=== PATIENT | male | born 1955 | race Caucasian/White ===

== ENCOUNTER 2023-09-15 10:55 | Outpatient (RCR) | payer BC, SELFPAY | END 2023-09-15 23:59 | disposition home or self-care (01) | LOC: ROT 10:55 | PROVIDERS: ATTENDING PHYSICIAN Family Medicine | DX: M19.042 Primary osteoarthritis, left hand (principal); Z73.6 Limitation of activities due to disability | CPT/HCPCS: 97018; 97110; 97166; 97530; 97535 ==

== ENCOUNTER → 2023-12-11 08:19 | Outpatient (REF) | payer BC, SELFPAY ==
[2023-12-11 09:55] LABS: Urine Albumin Negative (Neg - Trace); Urine Bilirubin Negative (Negative); Urine Character Clear (Clear); Urine Color Yellow; Urine Glucose Negative (Negative); Urine Ketone Negative (Negative); Urine Leukocyte Negative (Negative); Urine Nitrite Negative (Negative); Urine Occult Blood Negative (Negative); Urine Specific Gravity 1.015 (<1.030); Urine Urobilinogen Negative (Neg - 1+)
[2023-12-11 09:57] LABS: % Basophils 0.5 % (0-2); % Eosinophils 0.8 % (0-6); % Immature Granulocytes 0.3 % (0-0.5); % Lymphocytes 38.8 % (20.5-51.1); % Monocytes 9.4 % (1.7-9.3); % Neutrophils 50.2 % (42.2-75.2); Absolute Lymphocytes 1.4 10^3/uL (1.2-3.4); Absolute Monocytes 0.4 10^3/uL (0.1-0.6); Absolute Neutrophils 1.9 10^3/uL (1.4-6.5); Hematocrit 42.3 % (39.0-52.0); Hemoglobin 14.5 g/dL (13.0-18.0); Mean Corp Hgb Conc. 34.3 g/dL (33.0-37.0); Mean Corpuscular Hgb 30.1 pg (27.0-31.0); Mean Corpuscular Volume 87.8 fL (80.0-94.0); Mean Platelet Volume 9.3 fL (7.4-10.4); Nucleated Red Blood Cells % 0 % (-); Platelet Count 231 10^3/uL (130-400); Red Blood Cell Count 4.82 10^6/uL (4.70-6.10); Red Cell Dist. Width 12.6 % (11.5-14.5); White Blood Cell Count 3.7 10^3/uL (4.8-10.8)
[2023-12-11 10:37] LABS: ALT (SGPT) 37 U/L (0-50); AST (SGOT) 43 U/L (17-59); Albumin 4.3 g/dl (3.5-5.0); Alkaline Phosphatase 100 U/L (38-126); Blood Urea Nitrogen 24 mg/dl (9-20); Calcium 9.4 mg/dl (8.4-10.2); Carbon Dioxide 26 mmol/L (22-30); Chloride 105 mmol/L (98-107); Glucose 91 mg/dl (70-99); HDL Cholesterol 57 mg/dl; LDL Cholesterol, Calculated 140 mg/dl; Potassium 4.7 mmol/L (3.5-5.1); Sodium 140 mmol/L (135-145); Total Bilirubin 0.7 mg/dl (0.2-1.3); Total Cholesterol 209 mg/dl (50-199); Total Protein 7.2 g/dl (6.3-8.2); Triglyceride 61 mg/dl (10-149); Very Low Density Lipoprotein 12 mg/dl (0-30); eGFR > 60.00
[2023-12-11 11:08] LABS: PSA, Total - Screen 2.68 ng/ml (0.0-4.0)
[2023-12-13 15:31] LABS: Homocysteine 12 umol/L (0-15)
== END ==
LOC: HWLAB 08:19
PROVIDERS: ATTENDING PHYSICIAN Family Medicine
DX: E78.5 Hyperlipidemia, unspecified (principal); Z00.00 Encounter for general adult medical examination without abnormal findings
CPT/HCPCS: 36415; 80053; 80061; 81003; 83090; 85025; G0103

== ENCOUNTER → 2024-08-02 08:37 | Outpatient (REF) | payer BC, SELFPAY ==
[2024-08-02 11:16] LABS: % Basophils 0.5 % (0-2); % Eosinophils 0.7 % (0-6); % Lymphocytes 32.9 % (20.5-51.1); % Monocytes 9.1 % (1.7-9.3); % Neutrophils 56.8 % (42.2-75.2); Absolute Lymphocytes 1.3 10^3/uL (1.2-3.4); Absolute Monocytes 0.4 10^3/uL (0.1-0.6); Absolute Neutrophils 2.3 10^3/uL (1.4-6.5); Hematocrit 44.3 % (39.0-52.0); Hemoglobin 14.7 g/dL (13.0-18.0); Mean Corp Hgb Conc. 33.2 g/dL (33.0-37.0); Mean Corpuscular Hgb 30.1 pg (27.0-31.0); Mean Corpuscular Volume 90.6 fL (80.0-94.0); Mean Platelet Volume 9.7 fL (7.4-10.4); Nucleated Red Blood Cells % 0 % (-); Platelet Count 220 10^3/uL (130-400); Red Blood Cell Count 4.89 10^6/uL (4.70-6.10); Red Cell Dist. Width 12.3 % (11.5-14.5); White Blood Cell Count 4.1 10^3/uL (4.8-10.8)
[2024-08-02 11:29] LABS: ALT (SGPT) 38 U/L (0-50); AST (SGOT) 37 U/L (17-59); Albumin 4.6 g/dl (3.5-5.0); Alkaline Phosphatase 87 U/L (38-126); Blood Urea Nitrogen 20 mg/dl (9-20); Calcium 9.4 mg/dl (8.4-10.2); Carbon Dioxide 27 mmol/L (22-30); Chloride 102 mmol/L (98-107); Glucose 94 mg/dl (70-99); HDL Cholesterol 50 mg/dl; Potassium 4.4 mmol/L (3.5-5.1); Sodium 137 mmol/L (135-145); Total Bilirubin 1.1 mg/dl (0.2-1.3); Total Protein 7.1 g/dl (6.3-8.2); Triglyceride 139 mg/dl (10-149); Very Low Density Lipoprotein 27 mg/dl (0-30); eGFR > 60.00
[2024-08-02 11:39] LABS: Glycohemoglobin (HgbA1c) 5.3 % (4.0-5.6)
[2024-08-02 11:53] LABS: PSA, Total - Screen 2.52 ng/ml (0.0-4.0); TSH 3.23 uIU/ml (0.47-4.68)
[2024-08-02 13:25] LABS: LDL Cholesterol, Calculated 145 mg/dl; Total Cholesterol 222 mg/dl (50-199)
[2024-08-04 00:31] LABS: Homocysteine 10 umol/L (0-15)
== END ==
LOC: HWRAD 08:37
PROVIDERS: ATTENDING PHYSICIAN Surgery; FAMILY PHYSICIAN Family Medicine; OTHER PHYSICIAN Internal Medicine Cardiovascular Disease; REFERRING PHYSICIAN Family Medicine Adult Medicine
DX: K43.9 Ventral hernia without obstruction or gangrene (principal); Z00.00 Encounter for general adult medical examination without abnormal findings
CPT/HCPCS: 36415; 74176; 80053; 80061; 83036; 83090; 84443; 85025; G0103

== ENCOUNTER → 2024-08-26 08:58 | Outpatient (REF) | payer BC, SELFPAY | LOC: RCS 08:58 | PROVIDERS: ATTENDING PHYSICIAN Internal Medicine Cardiovascular Disease; FAMILY PHYSICIAN Family Medicine | DX: I34.0 Nonrheumatic mitral (valve) insufficiency (principal) | CPT/HCPCS: 93017; 93350; Q9950 ==

== ENCOUNTER → 2024-08-31 12:24 | Outpatient (REF) | payer BC, SELFPAY | LOC: RCS 12:24 | PROVIDERS: ATTENDING PHYSICIAN Internal Medicine Cardiovascular Disease; FAMILY PHYSICIAN Family Medicine | DX: I34.0 Nonrheumatic mitral (valve) insufficiency (principal) | CPT/HCPCS: 93306 ==

== ENCOUNTER 2024-09-22 14:03 | Outpatient (RCR) | payer BC, SELFPAY | END 2024-09-22 23:59 | disposition home or self-care (01) | LOC: RPT 14:03 | PROVIDERS: ATTENDING PHYSICIAN Surgery; FAMILY PHYSICIAN Family Medicine | DX: M47.816 Spondylosis without myelopathy or radiculopathy, lumbar region (principal); Z73.6 Limitation of activities due to disability; M25.562 Pain in left knee; M62.81 Muscle weakness (generalized) | CPT/HCPCS: 97010; 97110; 97162 ==

== ENCOUNTER 2024-10-12 11:02 | Outpatient (RCR) | payer BC, SELFPAY | END 2024-10-12 13:19 | disposition home or self-care (01) | LOC: RPT 11:02 | PROVIDERS: ATTENDING PHYSICIAN Surgery; FAMILY PHYSICIAN Family Medicine | DX: M47.816 Spondylosis without myelopathy or radiculopathy, lumbar region (principal); Z73.6 Limitation of activities due to disability; M25.562 Pain in left knee; M62.81 Muscle weakness (generalized) | CPT/HCPCS: 97010; 97110 ==

== ENCOUNTER → 2024-12-12 07:29 | Outpatient (REF) | payer BC, SELFPAY ==
[2024-12-12 08:03] LABS: % Basophils 0.5 % (0-2); % Eosinophils 0.8 % (0-6); % Immature Granulocytes 0.3 % (0-0.5); % Lymphocytes 43.2 % (20.5-51.1); % Monocytes 8.7 % (1.7-9.3); % Neutrophils 46.5 % (42.2-75.2); Absolute Lymphocytes 1.6 10^3/uL (1.2-3.4); Absolute Monocytes 0.3 10^3/uL (0.1-0.6); Absolute Neutrophils 1.7 10^3/uL (1.4-6.5); Hematocrit 43.2 % (39.0-52.0); Hemoglobin 14.5 g/dL (13.0-18.0); Mean Corp Hgb Conc. 33.6 g/dL (33.0-37.0); Mean Corpuscular Hgb 30.4 pg (27.0-31.0); Mean Corpuscular Volume 90.6 fL (80.0-94.0); Mean Platelet Volume 9.3 fL (7.4-10.4); Nucleated Red Blood Cells % 0 % (-); Platelet Count 213 10^3/uL (130-400); Red Blood Cell Count 4.77 10^6/uL (4.70-6.10); Red Cell Dist. Width 12.6 % (11.5-14.5); White Blood Cell Count 3.7 10^3/uL (4.8-10.8)
[2024-12-12 08:38] LABS: ALT (SGPT) 43 U/L (0-50); AST (SGOT) 40 U/L (17-59); Albumin 4.4 g/dl (3.5-5.0); Alkaline Phosphatase 74 U/L (38-126); Blood Urea Nitrogen 24 mg/dl (9-20); Calcium 9.6 mg/dl (8.4-10.2); Carbon Dioxide 26 mmol/L (22-30); Chloride 107 mmol/L (98-107); Glucose 96 mg/dl (70-99); HDL Cholesterol 56 mg/dl; LDL Cholesterol, Calculated 174 mg/dl; Potassium 4.6 mmol/L (3.5-5.1); Sodium 140 mmol/L (135-145); Total Bilirubin 0.7 mg/dl (0.2-1.3); Total Cholesterol 253 mg/dl (50-199); Total Protein 7.3 g/dl (6.3-8.2); Triglyceride 119 mg/dl (10-149); Very Low Density Lipoprotein 23 mg/dl (0-30); eGFR > 60.00
[2024-12-14 04:44] LABS: Homocysteine 11 umol/L (0-15)
== END ==
LOC: REG 07:29
PROVIDERS: ATTENDING PHYSICIAN Family Medicine
DX: E78.2 Mixed hyperlipidemia (principal); R53.83 Other fatigue; Z13.1 Encounter for screening for diabetes mellitus; E53.8 Deficiency of other specified B group vitamins
CPT/HCPCS: 36415; 80053; 80061; 83090; 85025

== ENCOUNTER → 2025-01-04 07:11 | Outpatient (REF) | payer BC, SELFPAY | LOC: HWRAD 07:11 | PROVIDERS: ATTENDING PHYSICIAN Family Medicine | DX: R10.11 Right upper quadrant pain (principal) | CPT/HCPCS: 76700 ==

== ENCOUNTER → 2025-03-31 09:24 | Outpatient (REF) | payer BC, SELFPAY | LOC: RAD 09:24 | PROVIDERS: ATTENDING PHYSICIAN Nurse Practitioner Adult Health; FAMILY PHYSICIAN Family Medicine | DX: M54.50 Low back pain, unspecified (principal) | CPT/HCPCS: 72110 ==

== ENCOUNTER 2025-04-13 16:54 | Outpatient (RCR) | payer BC, SELFPAY | END 2025-04-13 23:59 | disposition home or self-care (01) | LOC: RPT 16:54 | PROVIDERS: ATTENDING PHYSICIAN Family Medicine | DX: R10.22 Pelvic and perineal pain left side (principal); R10.2 Pelvic and perineal pain (principal); M62.89 Other specified disorders of muscle; N39.41 Urge incontinence; R35.1 Nocturia; Z73.6 Limitation of activities due to disability; M54.50 Low back pain, unspecified; M62.08 Separation of muscle (nontraumatic), other site; K59.00 Constipation, unspecified; R35.0 Frequency of micturition | CPT/HCPCS: 97112; 97140; 97163; 97530 ==

== ENCOUNTER 2025-05-18 13:50 | Outpatient (RCR) | payer BC, SELFPAY | END 2025-05-18 23:59 | disposition home or self-care (01) | LOC: RPT 13:50 | PROVIDERS: ATTENDING PHYSICIAN Family Medicine | DX: R10.22 Pelvic and perineal pain left side (principal); M62.89 Other specified disorders of muscle; N39.41 Urge incontinence; R35.1 Nocturia; Z73.6 Limitation of activities due to disability; M54.50 Low back pain, unspecified; M62.08 Separation of muscle (nontraumatic), other site; R35.0 Frequency of micturition; K59.00 Constipation, unspecified; R10.2 Pelvic and perineal pain | CPT/HCPCS: 97110; 97112; 97140; 97530 ==

== ENCOUNTER → 2025-05-29 14:06 | Outpatient (REF) | payer BC, SELFPAY ==
[2025-05-29 14:34] LABS: Hematocrit 45.3 % (39.0-52.0); Hemoglobin 14.7 g/dL (13.0-18.0); Mean Corp Hgb Conc. 32.5 g/dL (33.0-37.0); Mean Corpuscular Volume 91.1 fL (80.0-94.0); Nucleated Red Blood Cells % 0 % (-); Platelet Count 208 10^3/uL (130-400); Red Cell Dist. Width 12.2 % (11.5-14.5)
[2025-05-29 14:57] LABS: ALT (SGPT) 39 U/L (0-50); AST (SGOT) 37 U/L (17-59); Albumin 4.4 g/dl (3.5-5.0); Alkaline Phosphatase 77 U/L (38-126); Blood Urea Nitrogen 22 mg/dl (9-20); Calcium 9.5 mg/dl (8.4-10.2); Carbon Dioxide 30 mmol/L (22-30); Chloride 103 mmol/L (98-107); Glucose 82 mg/dl (70-99); Potassium 4.1 mmol/L (3.5-5.1); Sodium 135 mmol/L (135-145); Total Protein 7.2 g/dl (6.3-8.2); eGFR 54.41
== END ==
LOC: REG 14:06
PROVIDERS: ATTENDING PHYSICIAN Internal Medicine Cardiovascular Disease
DX: I49.5 Sick sinus syndrome (principal); Z95.0 Presence of cardiac pacemaker
CPT/HCPCS: 36415; 80053; 85025

== ENCOUNTER 2025-06-01 10:15 | Day surgery (SDC) | payer BC, SELFPAY ==
[2025-06-01] VITALS (8 sets, daily range): BP systolic 63–142; BP diastolic 46–88; BMI 28.5
--- NOTE | 2025-06-01 13:51 | ITS.CL.PACE ---
Direct Support Worker - Pacemaker Implant
Pacemaker Implant
Procedure Report:
Implantable Dual Chamber Pacemaker Generator Change:
Mr. Cruz is a very pleasant 69 years old gentleman with sick sinus syndrome status post PPM (08/03/2001), h/o gen change on 06/14/2010 who presented with battery depletion and device has gone into VVI mode and is pacing his RV intermittently
with symptoms, He is here for generator change.
Indications: Sick sinus syndrome
Date of the Procedure: 06/01/2025
Pre-Operative Diagnosis: Sick sinus syndrome
Post-Operative Diagnosis: Sick sinus syndrome
Procedure Performed: DUAL CHAMBER PACEMAKER GENERATOR CHANGE
Performing Physician:
Zoraida Ornelas MD
Anesthesia:
See anesthesia records
Detailed Description of the Procedure:
The patient was identified using hospital identification and informed consent obtained for the procedure. The risks were explained including, but not limited to: Bleeding, infection, arrhythmia, stroke, vascular/cardiac/lung puncture, surgery,
pacemaker dependency/device malfunction. All questions were answered.
The patient was brought to the electrophysiology laboratory in stable condition in fasting state. Continuous electrocardiographic and hemodynamic monitoring was initiated.
The initial rhythm was ventricular paced rhythm.
The procedure site was meticulously prepared with surgical scrub and allowed to dry with no pooling. Sterile draping was applied to cover the procedure site.
The left infraclavicular region was prepped and draped in the usual sterile fashion. Local anesthesia was administered subcutaneously using 1% lidocaine / bupivacaine. The incision was made on the previous incision site. The old PPM generator was
accessed and the adhesions were removed with care to avoid damage to the leads. The PPM capsule was cut to access the generator. The old device was freed from the underlying fascia. It was removed from the body. The Weitlaner retractor was placed in
the incision and used as access to skin for unipolar pacing.
The RV pacing lead was first removed and plugged into the new generator. Then the RA lead was removed and placed in the respective locations in the newer generator.
The old pocket and capsule was modified and the excessive scar was removed. A TYRX absorbable antibacterial envelope was used and the device was placed in the pouch with leads and placed in the modified pocket. There was excellent sensing, pacing,
and impedance from the leads.�Bovie cautery, and antibiotics were used.
The wound was irrigated thoroughly with antibiotic solution and closed in 3 layers using 2-0, VLoc sutures and two layers of 4-0 Biosyn sutures. Steri-Strips and a bandage were applied externally.�
Procedure End:
The procedure was tolerated well. A pressure bandage was applied to the incision area.
Estimated Blood loss:
5 cc
Fluoro time:
0 min
Specimens Removed:
No cultures and no specimens were obtained. No intraoperative pathology was identified.
Urine output:
None
Packs / Drains/ Tubes:
None
Instrument / Sponge Count Correct:
Yes
Complications of the Procedure:
None
Condition of Patient at Time of Transfer:
Hemodynamically stable with no neurological or vascular compromise.
Device information:�
Generator: [employer]; Model: W1DR01; Serial # [id number]�
Atrial Lead: [employer]; Model: 4592-53; Serial # [id number]
Measured data in the right atrium was sensing of 1.5 mV, an impedance of 399 ohms and threshold of 0.5 V at 0.4ms.
Implanted: 08/03/2001
RV Lead: [employer]; Model: 4092-58; Serial # [id number]
Measured data on the RV lead was sensing of 8.8 mV; impedance of 494ohms and threshold of 1.25 V at 0.4ms.
Implanted: 08/03/2001
Explanted device:
Explanted pacemaker: Model # ADDRL1; serial number [id number]
Implanted 06/14/2010: Explanted 06/01/2025
PROGRAMMING PARAMETERS:�
Aguilar parameter settings were AAIR <=> DDDR 60 (40 - 130 )
Summary:
Successful generator change of dual chamber pacemaker.
Results/Recommendations:
1. Please provide patient with adequate pain control�
Instructions to be given to patient:�
- Please follow up with [facility] at [address] [place] [address] ([phone]) to get your wound checked within 7 days of your discharge.
- Do not wet incision site until after it is evaluated at cardiology clinic. No showers until then. Sponge baths are OK.�
- Allow 'steri strips' to fall off on their own�
- Do not lift left elbow above shoulder, particularly with sudden jerking movements, for 1 month�
- Do not lift anything weighing more than 5 pounds with the left arm for 1 month�
- If you notice any fevers, shortness of breath, lightheadedness, chest pain, or worsening swelling in the wound site, please contact the arrhythmia clinic, contact your mold maker, or present to the hospital for evaluation.�
Zoraida Ornelas MD
Electrophysiology
== END 2025-06-01 15:30 | disposition home or self-care (01) ==
LOC: CATH 10:15
PROVIDERS: ATTENDING PHYSICIAN Internal Medicine Cardiovascular Disease; FAMILY PHYSICIAN Family Medicine
DX: Z45.010 Encounter for checking and testing of cardiac pacemaker pulse generator [battery] (principal); I49.5 Sick sinus syndrome; Z91.048 Other nonmedicinal substance allergy status
CPT/HCPCS: 33228; C1785

== ENCOUNTER 2025-06-26 07:30 | Outpatient (RCR) | payer BC, SELFPAY | END 2025-06-26 23:59 | disposition home or self-care (01) | LOC: RPT 07:30 | PROVIDERS: ATTENDING PHYSICIAN Family Medicine | DX: M62.89 Other specified disorders of muscle (principal); N39.41 Urge incontinence; R35.1 Nocturia; R10.22 Pelvic and perineal pain left side; Z73.6 Limitation of activities due to disability; M54.50 Low back pain, unspecified; M62.08 Separation of muscle (nontraumatic), other site; R35.0 Frequency of micturition; K59.00 Constipation, unspecified; R10.2 Pelvic and perineal pain | CPT/HCPCS: 97110; 97112; 97140; 97530 ==

== ENCOUNTER → 2025-06-27 08:19 | Outpatient (REF) | payer BC, SELFPAY ==
[2025-06-27 09:28] LABS: Hematocrit 45.5 % (39.0-52.0); Hemoglobin 15.1 g/dL (13.0-18.0); Mean Corp Hgb Conc. 33.2 g/dL (33.0-37.0); Mean Corpuscular Volume 90.3 fL (80.0-94.0); Nucleated Red Blood Cells % 0 % (-); Platelet Count 222 10^3/uL (130-400); Red Cell Dist. Width 12.3 % (11.5-14.5)
[2025-06-27 10:04] LABS: ALT (SGPT) 51 U/L (0-50); AST (SGOT) 44 U/L (17-59); Albumin 4.5 g/dl (3.5-5.0); Alkaline Phosphatase 95 U/L (38-126); Blood Urea Nitrogen 23 mg/dl (9-20); Calcium 9.5 mg/dl (8.4-10.2); Carbon Dioxide 27 mmol/L (22-30); Chloride 102 mmol/L (98-107); Glucose 88 mg/dl (70-99); HDL Cholesterol 56 mg/dl; LDL Cholesterol, Calculated 170 mg/dl; Potassium 4.4 mmol/L (3.5-5.1); Sodium 136 mmol/L (135-145); Total Protein 7.5 g/dl (6.3-8.2); Very Low Density Lipoprotein 19 mg/dl (0-30); eGFR > 60.00
[2025-06-27 10:21] LABS: Vitamin D, 25-OH*** 72.6 ng/mL (30-80)
[2025-06-27 10:54] LABS: Vitamin B12 958 pg/ml (239-931)
[2025-06-29 12:53] LABS: Retinyl Palmitate 0.06 mg/L (0.00-0.10); Xitamin A Interpretation Normal
== END ==
LOC: HWLAB 08:19
PROVIDERS: ATTENDING PHYSICIAN Family Medicine
DX: E50.9 Vitamin A deficiency, unspecified (principal); R53.83 Other fatigue; E78.2 Mixed hyperlipidemia; Z13.1 Encounter for screening for diabetes mellitus; E55.9 Vitamin D deficiency, unspecified
CPT/HCPCS: 36415; 80053; 80061; 82306; 82607; 84443; 84590; 85025